=== PATIENT | male | born 1970 | race Asian ===

== ENCOUNTER → 2020-06-22 08:58 | Outpatient (CLI) | payer OTHER, SELFPAY ==
[2020-06-22 12:45] LABS: ALB/GLOB Ratio 0.8 RATIO (0.9-2.4); AST(SGOT) 22 U/L (15-37); Alanine Aminotransfer ALT/SGPT 26 U/L (16-61); Albumin, Serum 3.9 g/dL (3.2-5.0); Alkaline Phosphatase 65 U/L (45-117); Anion Gap 3 (5-15); BUN 21 mg/dL (7-18); BUN/Creat Ratio 24.9 RATIO (10-20); Calcium,Total 9.1 mg/dL (8.5-10.1); Chloride 106 mmol/L (98-107); Cholesterol 162 mg/dL (200); Creatinine, Serum 0.84 mg/dL (0.70-1.30); EST Glomerular Filtration Rate 102 mL/min (>60); Est Glom Filt Rate - Afr Amer 123 mL/min (>60); Globulin 4.6 g/dL (2.2-4.2); Glucose 87 mg/dL (74-106); High Density Lipoprotein 64 mg/dL; Potassium 4.1 mmol/L (3.5-5.1); Protein, Total 8.5 g/dL (6.4-8.2); Sodium Level 139 mmol/L (136-145); Triglycerides 58 mg/dL; Very Low Density Lipoprotein 12 mg/dL (5-40)
== END ==
PROVIDERS: PCP Family Medicine; Referring Provider Family Medicine; Visit Provider Family Medicine
DX: I10 Essential (primary) hypertension (principal); E78.5 Hyperlipidemia, unspecified
CPT/HCPCS: 36415; 80053; 80061

== ENCOUNTER → 2021-07-01 15:57 | Outpatient (CLI) | payer BC, SELFPAY ==
[2021-07-01 16:56] LABS: Absolute Lymphocyte Count 1.79 X10^3/uL (0.83-4.51); Absolute Neutrophil Count 5.3 X10^3/uL (2.0-7.7); Basophil# 0.06 X10^3/uL; Basophil% 0.7 % (0-1); Eosinophil# 0.57 X10^3/uL; Eosinophils% 6.6 % (0-5); Hemoglobin 13.1 g/dL (13.0-16.5); Lymphocyte # 1.79 X10^3/ul (0.83-4.51); Lymphocyte % 20.8 % (19-41); Mean Corpuscular Hgb 26.4 pg (27.0-32.0); Mean Corpuscular Volume 82.7 fL (80-94); Mean Platelet Vol. 10.7 fl (6.2-12.0); Monocyte# 0.88 X10^3/uL; Monocyte% 10.2 % (0-10); NRBC Flagged by Analyzer 0 % (0-5); Neutrophil # 5.28 X10^3/uL (2.7-7.7); Neutrophil % 61.4 % (47-70); Platelet Count 219 K/mm3 (150-450); RBC Distribution Width CV 13.9 % (11.6-14.6); RBC Distribution Width SD 41.5 fl (35.1-43.9); Red Blood Count 4.96 M/mm3 (4.6-6.2); White Blood Count 8.6 K/mm3 (4.4-11.0)
[2021-07-01 17:50] LABS: ALB/GLOB Ratio 0.8 RATIO (0.9-2.4); AST(SGOT) 31 U/L (15-37); Alanine Aminotransfer ALT/SGPT 31 U/L (16-61); Albumin, Serum 3.7 g/dL (3.2-5.0); Alkaline Phosphatase 62 U/L (45-117); Anion Gap 5 (5-15); BUN 21 mg/dL (7-18); BUN/Creat Ratio 25.7 RATIO (10-20); Calcium,Total 8.8 mg/dL (8.5-10.1); Chloride 106 mmol/L (98-107); Creatinine, Serum 0.82 mg/dL (0.70-1.30); EST Glomerular Filtration Rate 105 mL/min (>60); Est Glom Filt Rate - Afr Amer 127 mL/min (>60); Globulin 4.4 g/dL (2.2-4.2); Glucose 88 mg/dL (74-106); Potassium 3.6 mmol/L (3.5-5.1); Protein, Total 8.1 g/dL (6.4-8.2); Sodium Level 140 mmol/L (136-145)
== END ==
PROVIDERS: PCP Family Medicine; Visit Provider Physician Assistant
DX: I10 Essential (primary) hypertension (principal)
CPT/HCPCS: 36415; 80053; 85025

== ENCOUNTER 2022-01-29 10:08 | Outpatient (CLI) | payer BC, SELFPAY ==
[2022-01-29 10:11] LABS: Mucous, Urine 0 SEEN /hpf (<or=2+)
[2022-01-29 12:15] LABS: Color, Urine Yellow (Yellow); Glucose, Dipstick Normal (Normal); Ketone-Dipstick 15 mg/dl (Negative); Leukocyte Esterase-Dipstick 500 /ul (Negative); Nitrite-Dipstick Negative (Negative); Occult Blood-Urine 25 /ul (Negative); Protein-Dipstick 15 mg/dl (Negative); Urine Bilirubin Dipstick Negative (Negative); Urine Clarity Clear (Clear); Urine Urobilinogen 4 mg/dl (Normal)
[2022-01-29 12:41] LABS: Bacteria 1+ /hpf (None Seen); Red Blood Cells-Urine 0-5 SEEN /hpf (0-5); Squamous Epithelial Cells - UA 0-5 SEEN /hpf (0-5); White Blood Cells 25-50 SEEN /hpf (0-5)
[2022-01-29 13:56] LABS: Chlamydia Trachomatis by PCR Negative (Negative); Neisserai gonorrhoeae by PCR Negative (Negative); Probe Check PASS; Sample Adequacy Control PASS; Specimen Processing Control PASS
== END 2022-01-29 23:59 | disposition home or self-care (01) ==
LOC: LABSPEC 10:09
PROVIDERS: PCP Family Medicine; Referring Provider Physician Assistant; Visit Provider Physician Assistant
DX: R30.0 Dysuria (principal)
CPT/HCPCS: 81001; 87086; 87088; 87186; 87491; 87591

== ENCOUNTER 2022-02-19 15:14 | Outpatient (CLI) | payer BC, SELFPAY ==
[2022-02-19 15:15] LABS: Bacteria 0 SEEN /hpf (None Seen); Mucous, Urine 0 SEEN /hpf (<or=2+); Squamous Epithelial Cells - UA 0 SEEN /hpf (0-5)
[2022-02-19 16:58] LABS: Color, Urine Yellow (Yellow); Glucose, Dipstick Normal (Normal); Ketone-Dipstick 5 mg/dl (Negative); Leukocyte Esterase-Dipstick 500 /ul (Negative); Nitrite-Dipstick Negative (Negative); Occult Blood-Urine 250 /ul (Negative); Protein-Dipstick 30 mg/dl (Negative); Specific Gravity, Urine 1.015 (1.002-1.030); Urine Clarity Sl. Cloudy (Clear); Urine Urobilinogen 8 mg/dl (Normal)
[2022-02-19 17:01] LABS: Urine Bilirubin Dipstick 1 mg/dL (Negative)
[2022-02-19 17:07] LABS: Red Blood Cells-Urine 0-5 SEEN /hpf (0-5); White Blood Cells 25-50 SEEN /hpf (0-5)
== END 2022-02-19 23:59 | disposition home or self-care (01) ==
LOC: LABSPEC 15:14
PROVIDERS: PCP Family Medicine; Visit Provider Physician Assistant
DX: R30.0 Dysuria (principal)
CPT/HCPCS: 81001; 87086; 87088

== ENCOUNTER → 2022-02-21 | Outpatient (CLI) | payer BC, SELFPAY ==
--- NOTE | 2022-02-21 10:34 | US_ITS ---
STUDY: SCROTUM ULTRASOUND REASON FOR EXAM: Male, 52 years old. testicular pain and swelling TECHNIQUE: Ultrasound evaluation of the scrotum was performed with color Doppler and static stuart-scale imaging. COMPARISON: None. FINDINGS: RIGHT TESTICLE INTRATESTICULAR: There is a normal size of the right testicle. The right testicle measures 3.3 x 3.0 x 2.3 cm. There is a homogenous echotexture. There is normal arterial and normal venous vascularity. There is no demonstrated right testicular mass or cyst. EXTRATESTICULAR: The epididymis is enlarged. The epididymis head measures 1.4 x 1.3 x 1.8 cm. There is increased (hyperemic) vascularity of the epididymis. There is no demonstrated epididymal cystic structure. There is no demonstrated hydrocele. There is no demonstrated varicocele. There is no demonstrated extratesticular mass or cyst. LEFT TESTICLE INTRATESTICULAR: There is a normal size of the left testicle. The left testicle measures 4.0 x 2.6 x 1.8 cm. There is a homogenous echotexture. There is normal arterial and normal venous vascularity. There is no demonstrated left testicular mass or cyst. EXTRATESTICULAR: The epididymis is normal in size. The epididymis head measures 0.9 x 1.2 x 0.9 cm. There is normal vascularity of the epididymis. There is no demonstrated epididymal cystic structure. There is no demonstrated hydrocele. There is no demonstrated varicocele. There is no demonstrated extratesticular mass or cyst. US/Testicular with Arterial Flow IMPRESSION: Normal bilateral testicles. Right epididymitis. Electronically Signed: Edgardo Helms MD at 11:59 EDT ,
== END | disposition home or self-care (01) ==
LOC: US 10:32
PROVIDERS: PCP Family Medicine; Visit Provider Physician Assistant
DX: N50.811 Right testicular pain (principal); N50.89 Other specified disorders of the male genital organs
CPT/HCPCS: 76870; 93976

== ENCOUNTER → 2023-09-08 | Outpatient (CLI) | payer BC, SELFPAY ==
[2023-09-08 17:47] LABS: AST(SGOT) 24 U/L (15-37); Alanine Aminotransfer ALT/SGPT 30 U/L (16-61); Alkaline Phosphatase 71 U/L (45-117); Anion Gap 5 (5-15); BUN 23 mg/dL (7-18); BUN/Creat Ratio 21.5 RATIO (10-20); Calcium,Total 9.2 mg/dL (8.5-10.1); Chloride 104 mmol/L (98-107); Cholesterol 195 mg/dL (200); Creatinine, Serum 1.07 mg/dL (0.70-1.30); EST Glomerular Filtration Rate 76 mL/min (>60); Est Glom Filt Rate - Afr Amer 92 mL/min (>60); Globulin 4.1 g/dL (2.2-4.2); Glucose 91 mg/dL (74-106); High Density Lipoprotein 83 mg/dL; Protein, Total 8.1 g/dL (6.4-8.2); Sodium Level 138 mmol/L (136-145); Triglycerides 65 mg/dL; Very Low Density Lipoprotein 13 mg/dL (5-40)
== END | disposition home or self-care (01) ==
LOC: BIMLAB 16:09
PROVIDERS: PCP Family Medicine; Referring Provider Family Medicine; Visit Provider Family Medicine
DX: I10 Essential (primary) hypertension (principal)
CPT/HCPCS: 36415; 80053; 80061

== ENCOUNTER → 2024-07-08 | Outpatient (CLI) | payer BC, SELFPAY ==
--- NOTE | 2024-07-08 13:36 | RAD_ITS ---
STUDY: X-RAY - LUMBAR SPINE REASON FOR EXAM: Male, 54 years old. chronic low back pain TECHNIQUE: 3 view(s) of the lumbar spine were obtained. COMPARISON: None FINDINGS: Normal lumbar lordosis. There is no substantial scoliosis. There is a normal alignment of the vertebrae. Degenerative changes of the vertebral bodies with spurring at the endplates. Slightly narrowed disc space heights. The soft tissue structures are unremarkable. RAD/Lumbar Spine 2 or 3 Views IMPRESSION: Mild degenerative changes of the lumbar spine. Electronically Signed: Gus Khoury DO at 14:26 EDT Reading Location ID and State: [facility] / [place] Tel [phone], Service support ,
[2024-07-08 15:20] LABS: Hemoglobin 12.9 g/dL (13.0-16.5); Mean Corp Hgb Conc 31.5 g/dL (32-36); Mean Corpuscular Hgb 25.9 pg (27.0-32.0); Mean Corpuscular Volume 82.2 fL (80-94); Mean Platelet Vol. 10.9 fl (6.2-12.0); Platelet Count 245 K/mm3 (150-450); RBC Distribution Width CV 14.6 % (11.6-14.6); RBC Distribution Width SD 43.3 fl (35.1-43.9); Red Blood Count 4.99 M/mm3 (4.6-6.2)
[2024-07-08 16:19] LABS: ALB/GLOB Ratio 0.8 RATIO (0.9-2.4); AST(SGOT) 22 U/L (15-37); Alanine Aminotransfer ALT/SGPT 24 U/L (16-61); Albumin, Serum 3.5 g/dL (3.2-5.0); Alkaline Phosphatase 66 U/L (45-117); Anion Gap 6 (5-15); BUN 20 mg/dL (7-18); BUN/Creat Ratio 25.5 RATIO (10-20); Calcium,Total 8.9 mg/dL (8.5-10.1); Chloride 108 mmol/L (98-107); Cholesterol 186 mg/dL (200); Creatinine, Serum 0.78 mg/dL (0.70-1.30); EST Glomerular Filtration Rate 109 mL/min (>60); Est Glom Filt Rate - Afr Amer 132 mL/min (>60); Globulin 4.2 g/dL (2.2-4.2); Glucose 99 mg/dL (74-106); High Density Lipoprotein 77 mg/dL; PSA,Total- Diagnostic 3.58 ng/mL (0.0-4.0); Potassium 3.7 mmol/L (3.5-5.1); Protein, Total 7.7 g/dL (6.4-8.2); Sodium Level 139 mmol/L (136-145); Triglycerides 109 mg/dL; Very Low Density Lipoprotein 22 mg/dL (5-40)
== END | disposition home or self-care (01) ==
PROVIDERS: PCP Family Medicine; Referring Provider Family Medicine; Visit Provider Family Medicine
DX: M54.50 Low back pain, unspecified (principal); G89.29 Other chronic pain; I10 Essential (primary) hypertension; N52.9 Male erectile dysfunction, unspecified
CPT/HCPCS: 36415; 72100; 80053; 80061; 84153; 85027

== ENCOUNTER → 2024-11-30 | Outpatient (CLI) | payer BC, SELFPAY ==
[2024-11-30 17:48] LABS: ALB/GLOB Ratio 0.8 RATIO (0.9-2.4); AST(SGOT) 25 U/L (15-37); Alanine Aminotransfer ALT/SGPT 27 U/L (16-61); Albumin, Serum 3.7 g/dL (3.2-5.0); Alkaline Phosphatase 74 U/L (45-117); Anion Gap 7 (5-15); BUN 28 mg/dL (7-18); BUN/Creat Ratio 34.4 RATIO (10-20); Calcium,Total 9.3 mg/dL (8.5-10.1); Chloride 105 mmol/L (98-107); Cholesterol 175 mg/dL (200); Creatinine, Serum 0.81 mg/dL (0.70-1.30); EST Glomerular Filtration Rate 104 mL/min (>60); Est Glom Filt Rate - Afr Amer 126 mL/min (>60); Globulin 4.7 g/dL (2.2-4.2); Glucose 96 mg/dL (74-106); High Density Lipoprotein 81 mg/dL; PSA,Total - Annual Screen 3.41 ng/mL (0.00-4.00); Potassium 3.9 mmol/L (3.5-5.1); Protein, Total 8.4 g/dL (6.4-8.2); Sodium Level 139 mmol/L (136-145); Triglycerides 49 mg/dL; Very Low Density Lipoprotein 10 mg/dL (5-40)
== END | disposition home or self-care (01) ==
LOC: BIMLAB 15:58
PROVIDERS: PCP Family Medicine; Visit Provider Family Medicine
DX: Z00.00 Encounter for general adult medical examination without abnormal findings (principal); I10 Essential (primary) hypertension
CPT/HCPCS: 36415; 80053; 80061; 84153; G0103

== ENCOUNTER → 2025-07-21 | Outpatient (CLI) | payer BC, SELFPAY ==
--- OUTSIDE RECORDS SUMMARY | 2025-07-21 08:52 | XMS RPT_ITS | CCD ---
Author Organization [facility] Care Team Providers Care Secretary Board Of Commissioners Name Role Phone Dr. Gino Patterson Primary Care Provider [phone] Dr. Gino Patterson Attending Provider [phone] Dr. Gino Patterson Referring Provider [phone] ESHA Yee Attending Provider Unavailab ISAURA Medrano DO Primary Care Physician [phone] GINO PATTERSON Attending Unavailable ISAURA PUCKETT Primary Care Unavailable Dr. Gino Pattesron Primary Care Provider [phone] Dr. Gino Patterson Attending Provider [phone] Gino Patterson Referring Provider [phone] Dr. Gino Patterson DO Primary Care Provider Dr. Gino Patterson DO Attending Provider [phone] Dr. Gino Patterson DO Referring Provider [phone] Gino Patterson Attending Unavailable Gino Patterson Primary Care Unavailable Gino Patterson Referring Unavailable Gino Patterson Primary Care Unavailable Gino Patterson Referring Unavailable Gino Patterson Attending Unavailable Gino Patterson Primary Care Unavailable Gino Patterson Attending Unavailable Medications Current Medications Medication Drug Class(es) Dates Sig (Normalized) Sig (Original) Blood Pressure Monitor (Blood Pressure Kit) kit (5 sources) Start: 07-01-2021 Blood Pressure Monitor (Blood Pressure Kit) kit Active 0 .ROUTE .MEDSUPPLY 1 July 01, 2021 3:49pm As directed Start: 07-01-2021 Blood Pressure Monitor (Blood Pressure Kit) kit Active 0 .ROUTE .MEDSUPPLY 1 0 July 01, 2021 12:00am As directed Start: 07-01-2021 Blood Pressure Monitor (Blood Pressure Kit) kit Active 0 .ROUTE .MEDSUPPLY 1 June 30, 2021 11:00pm As directed lisinopril 20 mg oral tablet (20 sources) Angiotensin Converting Enzyme Inhibitor Start: 08-09-2019 End: 06-23-2025 take 1 tablet by mouth once daily Lisinopril 20 mg tablet Active 20 mg PO DAILY 90 June 23, 2025 2:11pm sildenafil 100 mg oral tablet (6 sources) Phosphodiesterase 5 Inhibitor Start: 09-08-2023 End: 07-11-2025 Sildenafil (Viagra) 100 mg tablet Active 100 mg PO DAILY as needed for sexual activity 10 July 11, 2025 4:05pm administer 30 minutes to 4 hours before activity work limitations (1 source) Start: 07-11-2025 work limitations Active 0 .ROUTE .MEDSUPPLY 1 0 July 11, 2025 12:00am Because of chronic back problems he is limited to lifting to 15 pounds. Duration 6 months. Completed/Discontinued Medications Medication Drug Class(es) Dates Sig (Normalized) Sig (Original) ciprofloxacin 250 mg oral tablet (9 sources) Quinolone Antimicrobial Start: 01-29-2022 End: 02-20-2022 take 1 tablet by mouth twice daily Ciprofloxacin Hcl 250 mg tablet Discontinued 250 mg PO TWICE A DAY 14 February 20, 2022 9:06am February 20, 2022 1:24pm cyclobenzaprine hydrochloride 5 mg oral tablet (7 sources) Muscle Relaxant Start: 07-01-2021 End: 09-30-2022 take 1 tablet by mouth at bedtime as needed for muscle spasms Cyclobenzaprine 5 mg tablet Discontinued 5 mg PO TWICE A DAY as needed for muscle spasm 20 August 06, 2022 4:10pm September 30, 2022 5:05pm Take first dose at bedtime. May take 1-2 times a day as needed for muscle spasms. hydroquinone (2 sources) Melanin Synthesis Inhibitor Start: 09-08-2023 End: 07-11-2025 Hydroquinone 4 % cream Discontinued 1 NMA TOPICAL DAILY 28.4 1 September 08, 2023 1:00am July 11, 2025 3:47pm Start: 11-07-2023 Hydroquinone A ctive 1 APPLIC TOPICAL DAILY 28.4 September 08, 2023 12:00am levoFLOXacin 500 mg oral tablet (8 sources) Quinolone Antimicrobial Start: 02-20-2022 End: 08-06-2022 take 1 tablet by mouth once daily Levofloxacin 500 mg tablet Discontinued 500 mg PO DAILY 10 April 10, 2022 1:02pm August 06, 2022 3:57pm meloxicam 15 mg oral tablet (20 sources) Nonsteroidal Anti-inflammatory Drug Start: 07-06-2024 End: 07-11-2025 take 1 tablet by mouth once daily for pain Meloxicam 15 mg tablet Discontinued 15 mg PO DAILY 30 1 February 07, 2025 8:13am July 11, 2025 3:47pm for low back pain Start: 06-19-2020 End: 11-13-2022 take 1 tablet by mouth once daily Meloxicam 15 mg tablet Discontinued 15 mg PO DAILY 30 2 September 18, 2021 10:43am August 06, 2022 3:56pm methylPREDNISolone acetate 40 mg/ml injectable suspension (3 sources) Corticosteroid Start: 08-06-2020 End: 08-06-2020 Depo-Medrol (methylprednisolone acetate) 40 mg/mL suspension for injection Discontinued 40 MG INTRAARTIC ONCE 1 August 06, 2020 2:30pm August 06, 2020 3:28pm phenazopyridine hydrochloride 100 mg oral tablet (5 sources) Start: 01-29-2022 End: 01-31-2022 take 1 tablet by mouth three times daily as needed for pain Phenazopyridine 100 mg tablet Discontinued 100 mg PO THREE TIMES A DAY as needed for pain 6 2 0 January 29, 2022 12:00am January 30, 2022 12:00am January 31, 2022 12:04am tadalafil 20 mg oral tablet (20 sources) Phosphodiesterase 5 Inhibitor Start: 09-08-2023 End: 07-11-2025 take 1 tablet by mouth once daily Tadalafil (Cialis) 20 mg tablet Discontinued 20 mg PO DAILY 08 03September 08, 2023 5:07pm July 11, 2025 3:48pm Start: 03-31-2020 End: 08-06-2022 take 1 tablet by mouth once daily Tadalafil (Cialis) 20 mg tablet Discontinued 20 mg PO DAILY 08 03December 25, 2021 5:14pm August 06, 2022 3:57pm Problems Active Problems Problem Classification Problem Date Documented Da te Episodic/Chronic Essential hypertension (15 sources) Hypertensive disorder; Translations: [Essential (primary) hypertension] Onset: 07-11-2025 Chronic Inflammatory conditions of male genital organs (2 sources) Epididymo-orchitis without abscess; Translations: [Epididymo-orchitis ] 02-27-2022 Episodic Other and unspecified benign neoplasm (1 source) Melanocytic nevus of face; Translations: [Melanocytic nevi of unspecified part of face] 11-13-2022 Episodic Other and unspecified benign neoplasm (1 source) Melanocytic nevi of unspecified part of face; Translations: [Melanocytic nevus of face] 11-13-2022 Episodic Other connective tissue disease (5 sources) Atrophy of muscle of right lower leg; Translations: [Muscle wasting and atrophy, not elsewhere classified, right lower leg] 06-19-2020 Episodic Other connective tissue disease (4 sources) Muscle wasting and atrophy, not elsewhere classified, right lower leg; Translations: [Muscular wasting and disuse atrophy, not elsewhere classified] Episodic Other male genital disorders (10 sources) Male erectile dysfunction, unspecified; Translations: [Erectile dysfunction] Onset: 11-30-2024 Chronic Other male genital disorders (1 source) Impotence 08-09-2019 Chronic Other nervous system disorders (1 source) Other chronic pain; Translations: [Other chronic pain] Onset: 07-11-2025 Chronic Other non-traumatic joint disorders (4 sources) Pain in left knee; Translations: [Left knee pain] Onset: 07-11-2025 09-30-2022 Episodic Other skin disorders (5 sources) Seborrheic keratosis; Translations: [Other seborrheic keratosis] 12-25-2021 Episodic Other skin disorders (5 sources) Multiple skin tags; Translations: [Other hypertrophic disorders of the skin] 08-30-2020 Episodic Other skin disorders (3 sources) Other seborrheic keratosis; Translations: [Other seborrheic keratosis] Episodic Other skin disorders (2 sources) Solar lentigo; Translations: [Other melanin hyperpigmentation] 09-08-2023 Episodic Spondylosis; intervertebral disc disorders; other back problems (3 sources) Chronic low back pain; Translations: [Chronic low back pain] Episodic Sprains and strains (2 sources) Low back strain; Translations: [Strain of muscle, fascia and tendon of lower back, initial encounter] 09-30-2022 Episodic Unclassified (2 sources) M54.50 - Low back pain, unspecified,G89.29 - Other chronic pain Unclassified (1 source) Low back pain, unspecified; Translations: [Low back pain, unspecified] Onset: 07-11-2025 Past or Other Problems Problem Classification Problem Date Documented Da te Episodic/Chronic Other skin disorders (2 sources) Other melanin hyperpigmentatio n; Translations: [Other dyschromia] Onset: 11-30-2024 09-08-2023 Episodic Results Test Name Value Interpretation Reference Range Facility Internal Medicine Office Vis ayush 07-11-2025 Internal Medicine Office Visit [facility] [address] [place] [address] [place] [address] OFFICE VISIT Date of Service: 07/11/25 MR#: [id number] Acct: [id number] Name: LEANDER RUIZ Rep #: [id number] : 1970 Provider: Dr. Gino Hua own, DO Age/Sex: 55/M Location: [facility] Status: Signed Intake Vital Signs 11/30/24 15:45 07/11/25 15:48 Height 5 ft 6 in 5 ft 6 in Weight: 154 lb 150 lb BMI 24.8 24.2 BP 130/80 H 128/80 H Blood Pressure Location Lt brachial Lt brachial Position Sitting Sitting Respiration 16 18 Pulse 63 58 L Pulse Source Monitor Monitor Temp 98.0 F 98 F Temp Source Temporal Temporal Pulse Oximetry (%) 97 97 Oxygen Delivery Method room air room air Intake Visit Reasons: Low Back Pain Chief Complaint: Patient has increasing low back pain. [place] Required: No Is patient in pain?: Yes (lumbar back) Pain scale (1-10): 7 Allergies No Known Allergies Allergy (Verified 07/11/25 15:39) Medications ???Medication ???Instructions ???Recorded ???Confirmed ???Type blood pressure monitor (Blood #1 ea 07/01/21 07/11/25 Rx Pressure Kit) lisinopril 20 mg tablet 20 mg PO DAILY #90 tabs 06/23/25 0 07/11/25 Rx sildenafil 100 mg tablet (Viagra) 100 mg PO DAILY PRN sexual 07/11/25 Rx activity #10 tabs work limitations #1 ea 07/11/25 07/11/25 Rx Nurse's Note: Pt states about 2 years ago he started w/ low back pain. Pt states that it is getting more painful. Had xray done 07/2024. Mild arthritis shown. Pt states stretching did not help. Has not been treating w/ otc nsaids. Pt denies numbness tingling, loss of bowel or bladder control, radiating pain into other extermities. Pt is a 7/10 which is the worst it gets. Pt states it shoots up if he coughs. PFSH Medical History Essential hypertension Surgical History H/O arthroscopic knee surgery Family History Mother Hypertension Sister Diabetes Social History household members: spouse and children Smoking Status: Never smoker alcohol intake: never substance use type: does not use what type of physical activity do you participate in: none do you feel safe at home: Yes HPI HPI Chief Complaint: Patient has increasing low back pain. Details: LEANDER RUIZ, is a 55 M who presents to the office today for low back pain. He is struggling to get through the day the work because the pain is so severe but the pain is not radicular. He complained of the same pain last year and it was suggested to go through physical therapy but he thought he would just do stretching at home and that is not helped. X-rays showed simple arthritis. He is also having trouble with his left knee and at some point in time would like that injected. ROS Const Constitutional: No body ache, chills, excessive sweating, fatigue, fever(s), frequent falls, headache(s), snoring, weakness, sleep problems or change in appetite Eyes Eyes: No blurry vision, change in vision, eye pain or Light sensitivity ENT ENT: No abnormal hearing, ear or mastoid pain, tinnitus, nasal congestion, headache(s), neck pain or sore throat Resp Respiratory: No cough, shortness of breath, snoring or wheezing Cardio Cardiology: No chest pain at rest, chest pain with exertion, excessive sweating, shortness of breath, dyspnea on exertion, lightheadedness, orthopnea or palpitations Gastro GI: No abdominal pain, change in bowel habits, constipation, cramping, diarrhea, nausea/dyspepsia or vomiting Genitourinary Male: No burning urination, painful urination, urinary incontinence or urinary frequency Musc Musculoskeletal: No abnormal gait, joint pain, back pain, limited range of motion, neck pain or numbness Skin Skin: No dry skin, redness, lesions, itchy eyes, rash or wounds Neuro Neurology: No abnormal gait, abnormal hearing, weakness, frequent falls, headache(s), memory loss or numbness Psych Psychiatric: No anxiety, No change in appetite, No depression, No memory loss and No Thoughts of harming yourself/Others Endo Endocrine: No cold intolerance, excessive sweating, fatigue, flushing, heat intolerance, increased thirst/drinking or increased hunger Aller/Imm Allergy/Immunologic: No itchy eyes, seasonal allergy symptoms, hives or wheezing Quinten/Lymp Hematologic/Lymphati c: No easy bleeding, easy bruising, enlarged lymph nodes or other Exam Const General: cooperative and healthy appearing Nutritional Appearance: average body habitus Orientation: alert HENMT Ears: hearing grossly normal bilaterally Musc Thoracic/Lumbar Spine: thor and lumb spine (more content not included)... Normal [facility] Comprehensive Metabolic Prof ilon 11-30-2024 Albumin [Mass/Vol] 3.7 g/dL Normal 3.2-5.0 [facility] Comment on above: Performed By: #### L 500.4100, L501.9910, L500.4050 #### [facility] [address] [place], [address] Albumin/Globulin [Mass ratio] 0.8 {ratio} Low 0.9-2.4 [facility] Comment on above: Performed By: #### L 500.4100, L501.9910, [id number] #### [facility] [address] [place], [address] ALK P 74 U/L Normal 45-117 [facility] Comment on above: Performed By: #### L 500.4100, [id number], [id number] #### [facility] [address] [place], [address] ALT [Catalytic activity/Vol] 27 U/L Normal 16-61 [facility] Comment on above: Performed By: #### L 500.4100, L501.9910, [id number] #### [facility] [address] [place], [address] AST [Catalytic activity/Vol] 25 U/L Normal 15-37 [facility] Comment on above: Performed By: #### L 500.4100, L501.9910, [id number] #### [facility] [address] [place], [address] Bilirubin [Mass/Vol] 0.50 mg/dL Normal 0.20-1.00 [facility] Comment on above: Result Comment: For patients on eltrombopag therapy, use of Dimension [place] TBIL is not recommended. Performed By: #### L 500.4100, L501.9910, L500.4050 #### [facility] [address] [place], [address] BUN/CRE 34.4 RATIO High 10-20 [facility] Comment on above: Performed By: #### L 500.4100, L501.9910, [id number] #### [facility] [address] [place], [address] CA,Total 9.3 mg/dL Normal 8.5-10.1 [facility] Comment on above: Performed By: #### L 500.4100, L501.9910, [id number] #### [facility] [address] [place], [address] Chloride [Moles/Vol] 105 mmol/L Normal 98-107 [facility] Comment on above: Performed By: #### L 500.4100, L501.9910, [id number] #### [facility] [address] [place], [address] CO2 [Moles/Vol] 27.0 mmol/L Normal 21.0-32.0 [facility] Comment on above: Performed By: #### L 500.4100, L501.9910, L500.4050 #### [facility] [address] [place], [address] Creatinine [Mass/Vol] 0.81 mg/dL Normal 0.70-1.30 [facility] Comment on above: Result Comment: The validity of the calculated GFR GFRAA in patients over 70 years has not been determined. Clinical correlation is essential. Performed By: #### L 500.4100, L501.9910, L500.4050 #### [facility] [address] [place], [address] EST GFR - AA 126 mL/min Normal >60 [facility] Comment on above: Result Comment: Afri can [place] GFR Calc Performed By: #### L 500.4100, L501.9910, [id number] #### [facility] [address] [place], [address] GAP 7 Normal 5-15 [facility] Comment on above: Performed By: #### L 500.4100, L501.9910, [id number] #### [facility] [address] [place], [address] GFR/1.73 sq M.predicted among non-blacks MDRD (S/P/Bld) [Vol rate/Area] 104 mL/min/{1.73_m2} Normal >60 [facility] Comment on above: Result Comment: Non- GFR Calc Performed By: #### L 500.4100, L501.9910, [id number] #### [facility] [address] [place], [address] Globulin (S) [Mass/Vol] 4.7 g/dL High 2.2-4.2 [facility] Comment on above: Performed By: #### L 500.4100, L501.9910, [id number] #### [facility] [address] [place], [address] Glucose [Mass/Vol] 96 mg/dL Normal 74-106 [facility] Comment on above: Performed By: #### L 500.4100, L501.9910, [id number] #### [facility] [address] [place], [address] Potassium [Moles/Vol] 3.9 mmol/L Normal 3.5-5.1 [facility] Comment on above: Performed By: #### L 500.4100, L501.9910, [id number] #### [facility] [address] [place], [address] Sodium [Moles/Vol] 139 mmol/L Normal 136-145 [facility] Comment on above: Performed By: #### L 500.4100, L501.9910, [id number] #### [facility] [address] [place], [address] T PROT 8.4 g/dL High 6.4-8.2 [facility] Comment on above: Performed By: #### L 500.4100, L501.9910, [id number] #### [facility] [address] [place], [address] Urea nitrogen [Mass/Vol] 28 mg/dL High 7-18 [facility] Comment on above: Performed By: #### L 500.4100, L501.9910, L500.4050 #### [facility] [address] [place], [address] Internal Medicine Office Vis iton 11-30-2024 Internal Medicine Office Visit [facility] [address] [place] [address] [place] [address] OFFICE VISIT Date of Service: 11/30/24 MR#: [id number] Acct: [id number] Name: LEANDER RUIZ Rep #: [id number] : 1970 Provider: Dr. Gino wallis, DO Age/Sex: 54/M Location: [facility] Status: Signed Intake Vital Signs 07/06/24 16:22 11/30/24 15:45 Height 5 ft 6 in 5 ft 6 in Weight: 156 lb 154 lb BMI 25.2 24.8 BP 124/80 H 130/80 H Blood Pressure Location Lt brachial Lt brachial Position Sitting Sitting Respiration 14 16 Pulse 64 63 Pulse Source Monitor Monitor Temp 9.6 F L 98.0 F Temp Source Temporal Temporal Pulse Oximetry (%) 98 97 Oxygen Delivery Method room air room air Intake Visit Reasons: MED FOLLOW UP/CHK MOLE ON NECK Chief Complaint: mole on neck and wants BW done [place] Required: No Accompanied by: Self Is patient in pain?: No Allergies No Known Allergies Allergy (Verified 11/30/24 15:41) Medications ???Medication ???Instructions ???Recorded ???Confirmed ???Type blood pressure monitor (Blood #1 ea 07/01/21 11/30/24 Rx Pressure Kit) hydroquinone 4 % topical cream 1 applic topical DAILY #28.4 grams 09/08/23 11/30/24 Rx tadalafil 20 mg tablet (Cialis) 20 mg PO DAILY #10 tabs 09/08/23 11/30/24 Rx meloxicam 15 mg tablet 15 mg PO QDAY back pain #30 tabs 07/06/24 11/30/24 Rx lisinopril 20 mg tablet 20 mg PO DAILY #90 tabs 11/30/24 11/30/24 Rx sildenafil 100 mg tablet (Viagra) 100 mg PO DAILY PRN sexual 11/30/24 11/30/24 Rx activity #10 tabs PFSH Medical History (Updated 11/30/24 @ 15:[address] Gino Patterson, DO) Essential hypertension Surgical History H/O arthroscopic knee surgery Family History Mother Hypertension Sister Diabetes Social History household members: spouse and children Smoking Status: Never smoker alcohol intake: never substance use type: does not use what type of physical activity do you participate in: none do you feel safe at home: Yes HPI HPI Chief Complaint: mole on neck and wants BW done Details: LEANDER RUIZ, is a 54 M who presents to the office today for a general yearly physical. He has no specific complaints other than some benign skin tags that are pigmented on his neck. He says he feels well has good energy but does have a lot of problems with back pain and cannot lift excessive weight. He would like a slip that he had last year that he is not allowed to lift over 30 pounds at work. ROS Const Constitutional: No body ache, chills, excessive sweating, fatigue, fever(s), frequent falls, headache(s), snoring, weakness, weight change or change in appetite Eyes Eyes: No blurry vision, change in vision, eye pain or Light sensitivity ENT ENT: No abnormal hearing, ear or mastoid pain, tinnitus, nasal congestion, headache(s), neck pain or sore throat Resp Respiratory: No cough, shortness of breath, snoring or wheezing Cardio Cardiology: No chest pain at rest, chest pain with exertion, excessive sweating, dyspnea on exertion, lightheadedness, orthopnea or palpitations Gastro GI: No abdominal pain, change in bowel habits, constipation, cramping, diarrhea, nausea/dyspepsia or vomiting Genitourinary Male: No burning urination, painful urination, urinary incontinence or urinary frequency Musc Musculoskeletal: No abnormal gait, joint pain, back pain, limited range of motion, muscle weakness, neck pain or numbness Skin Skin: No dry skin, redness, lesions, itchy eyes, rash or wounds Neuro Neurology: No abnormal gait, abnormal hearing, weakness, frequent falls, headache(s), memory loss or numbness Psych Psychiatric: No anxiety, No change in appetite, No depression, No memory loss and No Thoughts of harming yourself/Others Endo Endocrine: No cold intolerance, excessive sweating, fatigue, flushing, heat intolerance, increased thirst/drinking, increased hunger or weight change Aller/Imm Allergy/Immunologic: No itchy eyes, seasonal allergy symptoms, hives or wheezing Quinten/Lymp Hematologic/Lymphati c: No easy bleeding or easy bruising Exam Const General: cooperative and healthy appearing Nutritional Appearance: average body habitus Eyes General: appearance normal, both eyes and all related structures Neck Neck: normal visual inspection Resp Effort Inspection: normal respiratory effort Auscultation: Bilateral: Clear to Auscultation Cardio Rate: regular rate Rhythm: regular rhythm Musc Musculoskeletal: Yes joint tenderness; No joint redness, joint warmth or decreased range of motion Thoracic/Lumbar Spine: straight leg raise negative bilaterally, paraspinal tenderness and lumbar spinal tenderne (more content not included)... Normal [facility] Lipid Profileon 11-30-2024 Cholesterol [Mass/Vol] 175 mg/dL Normal 200 [facility] Comment on above: Result Comment: <200 mg/dL Desirable 200-240 mg/dL Borderline >240 mg/dL High Risk Performed By: #### L 500.4100, L501.9910, L500.4050 #### [facility] [address] [place], [address] Cholesterol in HDL [Mass/Vol] 81 mg/dL Normal [facility] Comment on above: Result Comment: The drugs N-Acetylcysteine and Metamizole may falsely depress this assay. Reference Range HDL <40 mg/dL Low HDL Cholesterol HDL >or= 60 mg/dL High HDL Cholesterol Performed By: #### L 500.4100, L501.9910, L500.4050 #### [facility] [address] [place], [address] Cholesterol in LDL [Mass/Vol] 84 mg/dL Normal 0-130 [facility] Comment on above: Performed By: #### L 500.4100, L501.9910, L500.4050 #### [facility] [address] [place], [address] Cholesterol in VLDL [Mass/Vol] 10 mg/dL Normal 5-40 [facility] Comment on above: Performed By: #### L 500.4100, L501.9910, L500.4050 #### [facility] [address] [place], [address] Triglyceride [Mass/Vol] 49 mg/dL Normal [facility] Comment on above: Result Comment: The drugs N-Acetylcysteine and Metamizole may falsely depress this assay. Serum Triglycerides Reference Interval Normal <150 mg/dL Borderline high 150 - 199 mg/dL High 200 - 499 mg/dL Very High > or = 500 mg/dL Performed By: #### L 500.4100, L501.9910, L500.4050 #### [facility] [address] [place], [address] PSA,Total - Annual Screenon 11-30-2024 PSA,TOT SCREEN 3.41 ng/mL Normal 0.00-4.00 [facility] Comment on above: Result Comment: This test was performed using the TPSA assay method for the [employer] chemistry system. Values obtained with different assay methods cannot be used interchangably. When changing PSA assays in the course of monitoring a patient, additional sequential testing should be carried out to confirm baseline values. Performed By: #### L 500.4100, L501.9910, L500.4050 #### [facility] [address] [place], [address] Basophil percentageOrdered B y: Gino Brown on 09-08-2023 Bilirubin [Mass/Vol] 0.40 mg/dL 0.20-1.00 [facility] Comment on above: For patients on eltr ombopag therapy, use of Dimension [place] TBIL is not recommended. Chloride [Moles/Vol] 104 mmol/L 98-107 [facility] Cholesterol [Mass/Vol] 195 mg/dL <200 [facility] Comment on above: <200 mg/dL Desirable 200-240 mg/dL Borderline >240 mg/dL High Risk Glucose [Mass/Vol] 91 mg/dL 74-106 [facility] Potassium [Moles/Vol] 4.0 mmol/L 3.5-5.1 [facility] Protein [Mass/Vol] 8.1 g/dL 6.4-8.2 [facility] Sodium [Moles/Vol] 138 mmol/L 136-145 [facility] Triglyceride [Mass/Vol] 65 mg/dL <199 [facility] Comment on above: The drugs N-Acetylcy steine and Metamizole may falsely depress this assay.Serum Triglycerides Reference Interval Normal <150 mg/dL Borderline high 150 - 199 mg/dL High 200 - 499 mg/dL Very High > or = 500 mg/dL Laboratory - Chemistry and C hemistry - challengeOrdered By: Gino Patterson on 09-08-2023 ALP [Catalytic activity/Vol] 71 U/L 45-117 [facility] ALT [Catalytic activity/Vol] 30 U/L 16-61 [facility] CO2 [Moles/Vol] 29.0 mmol/L 21.0-32.0 [facility] Globulin (S) [Mass/Vol] 4.1 g/dL 2.2-4.2 [facility] Urea nitrogen/Creatinine [Mass ratio] 21.5 mg/mg 10-20 [facility] No Panel InformationOrdered By: Gino Patterson on 09-08-2023 Estimated GFR (MDRD) Amer 92 mL/min >60 [facility] Comment on above: GFR Calc Estimated GFR (MDRD) Non-Af Amer 76 mL/min >60 [facility] Comment on above: Non- GFR Calc Serum or plasma albumin floyd urement (mass/volume)Ordered By: Gino Patterson on 09-08-2023 Albumin [Mass/Vol] 4.0 g/dL 3.2-5.0 [facility] Serum or plasma albumin/glob ulin mass ratioOrdered By: Gino Patterson on 09-08-2023 Albumin/Globulin [Mass ratio] 1.0 {ratio} 0.9-2.4 [facility] Serum or plasma calcium floyd urement (mass/volume)Ordered By: Gino Patterson on 09-08-2023 Calcium [Mass/Vol] 9.2 mg/dL 8.5-10.1 [facility] Serum or plasma cholesterol in HDL measurement (mass/volume)Ordered By: Gino Patterson on 09-08-2023 Cholesterol in HDL [Mass/Vol] 83 mg/dL >40 [facility] Comment on above: The drugs N-Acetylcy steine and Metamizole may falsely depress this assay. Reference Range HDL <40 mg/dL Low HDL Cholesterol HDL >or= 60 mg/dL High HDL Cholesterol Serum or plasma cholesterol in VLDL measurement (mass/volume)Ordered By: Gino Patterson on 09-08-2023 Cholesterol in VLDL [Mass/Vol] 13 mg/dL 5-40 [facility] Serum or plasma creatinine m easurement (mass/volume)Ordered By: Gino Patterson on 09-08-2023 Creatinine [Mass/Vol] 1.07 mg/dL 0.70-1.30 [facility] Comment on above: The validity of the calculated GFR & GFRAA in patients over 70 years has not been determined. Clinical correlation is essential. Serum or plasma low density lipoprotein (LDL) cholesterol measurement (mass/volume)Ordered By: Gino Patterson on 09-08-2023 Cholesterol in LDL [Mass/Vol] 99 mg/dL 0-130 [facility] Serum or plasma urea nitroge n measurement (mass/volume)Ordered By: Gino Patterson on 09-08-2023 Urea nitrogen [Mass/Vol] 23 mg/dL 7-18 [facility] Thin prep Papanicolaou smear with manual screeningOrdered By: Gino Patterson on 09-08-2023 Thin prep Papanicolaou smear with manual screening 24 U/L 15-37 [facility] Thin prep Papanicolaou smear with manual screening 5 5-15 [facility] XR KNEE THREE VIEWS LEFTon 1 12-16-2021 XR KNEE THREE VIEWS LEFT ORIGINAL EXAMINATION: THREE XRAY VIEWS OF THE LEFT KNEE 10/11/2022 10:19 am COMPARISON: None. HISTORY: ORDERING SYSTEM PROVIDED HISTORY: Reason for Exam: PAIN IN LEFT KNEE FINDINGS: No acute fracture or dislocation. Bipartite patella. Joint space narrowing with tricompartmental osteophyte formation. Enthesophyte at the insertion of the quadriceps tendon. There may be a small joint effusion. IMPRESSION: Moderate degenerative changes. Interpreted by: Kaykay Matias MD Preliminary Report By: Kaykay Matias MD Electronically signed By Kaykay Matias MD Dictated Date: 10/15/2022 4:26:31 PM Prelim Date: 10/15/2022 4:27:56 PM Sign Date: 10/15/2022 4:27:56 PM Ordering Provider: GINO PATTERSON [facility] ([place]) Basophil percentageon 2021 Basophil percentage 25-50 SEEN /hpf [facility] Work Phone: Bilirubin Test strip Ql (U)o n 02-19-2022 Bilirubin Ql (U) 1 mg/dL Negative [facility] Work Phone: Comment on above: COLOR OF URINE MAY A FFECT DIPSTICK RESULTS. Culture, urineon 02-19-2022 Bacteria identified Cx Nom (U) GNR lactose screen examiner [facility] Work Phone: Ketones Test strip Ql (U)on 02-19-2022 Ketones Ql (U) 5 mg/dl Negative [facility] Work Phone: Mucus LM Ql (Urine sed)on Mucus Ql (Urine sed) 0 SEEN /hpf [facility] Work Phone: Nitrite Test strip Ql (U)on 02-19-2022 Nitrite Ql (U) Negative Negative [facility] Work Phone: Protein Test strip Ql (U)on 02-19-2022 Protein Ql (U) 30 mg/dl Negative [facility] Work Phone: Squamous epithelial cells de tection in urine sediment by light microscopyon 02-19-2022 Epithelial cells.squamous LM Ql (Urine sed) 0 SEEN /hpf [facility] Work Phone: Urine blood detectionon 02-01 RBC Ql (U) 250 /ul Negative [facility] Work Phone: RBC Ql (U) 0-5 SEEN /hpf [facility] Work Phone: Urine clarityon 02-19-2022 Clarity (U) Sl. Cloudy Clear [facility] Work Phone: Urine color determinationon 02-19-2022 Color (U) Yellow Yellow [facility] Work Phone: Urine glucose detectionon Glucose Ql (U) Normal mg/dl Normal [facility] Work Phone: Urine leukocyte esterase det ection by dipstickon 02-19-2022 Leukocyte esterase Test strip Ql (U) 500 /ul Negative [facility] Work Phone: Urine pHon 02-19-2022 pH (U) 6.0 [pH] [facility] Work Phone: Urine sediment bacteria coun t by microscopy (number/high power field)on 02-19-2022 Bacteria LM.HPF (Urine sed) [#/Area] 0 /[HPF] None Seen [facility] Work Phone: Urine specific gravity measu rementon 02-19-2022 Specific gravity (U) [Rel density] 1.015 [facility] Work Phone: Urobilinogen Auto test strip Ql (U)on 02-19-2022 Urobilinogen Ql (U) 8 mg/dl Normal [facility] Work Phone: Basophil percentageon 2021 Basophil percentage 25-50 SEEN /hpf [facility] Work Phone: C. trachomatis DNA MAYELA+probe Ql (Unsp spec) Negative Negative [facility] Work Phone: Bilirubin Test strip Ql (U)o n 01-29-2022 Bilirubin Ql (U) Negative Negative [facility] Work Phone: Culture, urineon 01-29-2022 Bacteria identified Cx Nom (U) Presumptive E. coli [facility] Work Phone: Ketones Test strip Ql (U)on 01-29-2022 Ketones Ql (U) 15 mg/dl Negative [facility] Work Phone: Mucus LM Ql (Urine sed)on Mucus Ql (Urine sed) 0 SEEN /hpf [facility] Work Phone: Neisseria gonorrhoeae detect ion by PCRon 01-29-2022 N. gonorrhoeae DNA MAYELA+probe Ql (Cervical mucus) Negative Negative [facility] Work Phone: Nitrite Test strip Ql (U)on 01-29-2022 Nitrite Ql (U) Negative Negative [facility] Work Phone: Protein Test strip Ql (U)on 01-29-2022 Protein Ql (U) 15 mg/dl Negative [facility] Work Phone: Squamous epithelial cells de tection in urine sediment by light microscopyon 01-29-2022 Epithelial cells.squamous LM Ql (Urine sed) 0-5 SEEN /hpf [facility] Work Phone: Urine blood detectionon 01-02 RBC Ql (U) 25 /ul Negative [facility] Work Phone: RBC Ql (U) 0-5 SEEN /hpf [facility] Work Phone: Urine clarityon 01-29-2022 Clarity (U) Clear Clear [facility] Work Phone: Urine color determinationon 01-29-2022 Color (U) Yellow Yellow [facility] Work Phone: Urine glucose detectionon Glucose Ql (U) Normal mg/dl Normal [facility] Work Phone: Urine leukocyte esterase det ection by dipstickon 01-29-2022 Leukocyte esterase Test strip Ql (U) 500 /ul Negative [facility] Work Phone: Urine pHon 01-29-2022 pH (U) 8.0 [pH] [facility] Work Phone: Urine sediment bacteria coun t by microscopy (number/high power field)on 01-29-2022 Bacteria LM.HPF (Urine sed) [#/Area] 1 /[HPF] None Seen [facility] Work Phone: Urine specific gravity measu rementon 01-29-2022 Specific gravity (U) [Rel density] 1.010 [facility] Work Phone: Urobilinogen Auto test strip Ql (U)on 01-29-2022 Urobilinogen Ql (U) 4 mg/dl Normal [facility] Work Phone: Vital Signs Date Time Vital Sign Value Performing Clinician Faci lity 07-11-2025 15:48-0400 Body height 167.[address] Gino Patterson DO Work Phone: [facility] 07-11-2025 15:48-0400 Body mass index (BMI) [Ratio] 24.2 kg/m2 Dr. Gino Patterson DO Work Phone: [facility] 07-11-2025 15:48-0400 Body temperature 98 [degF] Dr. Gino Patterson DO Work Phone: [facility] 07-11-2025 15:48-0400 Body weight 68.[address] Gino Patterson DO Work Phone: [facility] 07-11-2025 15:48-0400 Diastolic blood pressure 80 mm[Hg] Dr. Gino Patterson DO Work Phone: [facility] 07-11-2025 15:48-0400 Heart rate 58 /min Dr. Gino Patterson DO Work Phone: [facility] 07-11-2025 15:48-0400 Respiratory rate 18 /min Dr. Gino Patterson DO Work Phone: [facility] 07-11-2025 15:48-0400 SaO2% (BldA) [Mass fraction] 97 % Dr. Gino Patterson DO Work Phone: [facility] 07-11-2025 15:48-0400 Systolic blood pressure 128 mm[Hg] Dr. Gino Patterson DO Work Phone: [facility] 09-08-2023 15:50-0500 Body height 167.[address] Gino Patterson Work Phone: [facility] 09-08-2023 15:50-0500 Body mass index (BMI) [Ratio] 25.2 kg/m2 Dr. Gino Patterson Work Phone: [facility] 09-08-2023 15:50-0500 Body temperature 98.4 [degF] Dr. Gino Patterson Work Phone: [facility] 09-08-2023 15:50-0500 Body weight 70.[address] Gino Patterson Work Phone: [facility] 09-08-2023 15:50-0500 Diastolic blood pressure 70 mm[Hg] Dr. Gino Patterson Work Phone: [facility] 09-08-2023 15:50-0500 Heart rate 68 /min Dr. Gino Patterson Work Phone: [facility] 09-08-2023 15:50-0500 Respiratory rate 15 /min Dr. Gino Patterson Work Phone: [facility] 09-08-2023 15:50-0500 SaO2% (BldA) [Mass fraction] 99 % Dr. Gino Patterson Work Phone: [facility] 09-08-2023 15:50-0500 Systolic blood pressure 116 mm[Hg] Dr. Gino Patterson Work Phone: [facility] 02-20-2022 13:00-0400 Body height 167.[address] Gino Patterson Work Phone: [facility] Work Phone: 02-20-2022 13:00-0400 Body mass index (BMI) [Ratio] 25.8 kg/m2 Dr. Gino Patterson Work Phone: [facility] Work Phone: 02-20-2022 13:00-0400 Body temperature 97.6 [degF] Dr. Gino Patterson Work Phone: [facility] Work Phone: 02-20-2022 13:00-0400 Body weight 72.[address] Gino Patterson Work Phone: [facility] Work Phone: 02-20-2022 13:00-0400 Diastolic blood pressure 62 mm[Hg] Dr. Gino Patterson Work Phone: [facility] Work Phone: 02-20-2022 13:00-0400 Heart rate 72 /min Dr. Gino Patterson Work Phone: [facility] Work Phone: 02-20-2022 13:00-0400 Respiratory rate 16 /min Dr. Gino Patterson Work Phone: [facility] Work Phone: 02-20-2022 13:00-0400 SaO2% (BldA) [Mass fraction] 99 % Dr. Gino Patterson Work Phone: [facility] Work Phone: 02-20-2022 13:00-0400 Systolic blood pressure 110 mm[Hg] Dr. Gino Patterson Work Phone: [facility] Work Phone: 01-29-2022 09:43-0400 Diastolic blood pressure 78 mm[Hg] Dr. Gino Patterson Work Phone: [facility] Work Phone: 01-29-2022 09:43-0400 Systolic blood pressure 118 mm[Hg] Dr. Gino Patterson Work Phone: [facility] Work Phone: 01-29-2022 09:30-0400 Body height 167.[address] Gino Patterson Work Phone: [facility] Work Phone: 01-29-2022 09:30-0400 Body mass index (BMI) [Ratio] 26.6 kg/m2 Dr. Gino Patterson Work Phone: [facility] Work Phone: 01-29-2022 09:30-0400 Body temperature 97.5 [degF] Dr. Gino Patterson Work Phone: [facility] Work Phone: 01-29-2022 09:30-0400 Body weight 74.[address] Gino Patterson Work Phone: [facility] Work Phone: 01-29-2022 09:30-0400 Heart rate 74 /min Dr. Gino Patterson Work Phone: [facility] Work Phone: 01-29-2022 09:30-0400 Respiratory rate 14 /min Dr. Gino Patterson Work Phone: [facility] Work Phone: 01-29-2022 09:30-0400 SaO2% (BldA) [Mass fraction] 99 % Dr. Gino Patterson Work Phone: [facility] Work Phone: 12-25-2021 14:51-0500 Body temperature 95.9 [degF] Dr. Gino Patterson Work Phone: [facility] Work Phone: 12-25-2021 14:51-0500 Body weight 73.[address] Gino Patterson Work Phone: [facility] Work Phone: 12-25-2021 14:51-0500 Diastolic blood pressure 90 mm[Hg] Dr. Gino Patterson Work Phone: [facility] Work Phone: 12-25-2021 14:51-0500 Heart rate 60 /min Dr. Gino Patterson Work Phone: [facility] Work Phone: 12-25-2021 14:51-0500 Respiratory rate 16 /min Dr. Gino Patterson Work Phone: [facility] Work Phone: 12-25-2021 14:51-0500 SaO2% (BldA) [Mass fraction] 98 % Dr. Gino Patterson Work Phone: [facility] Work Phone: 12-25-2021 14:51-0500 Systolic blood pressure 144 mm[Hg] Dr. Gino Patterson Work Phone: [facility] Work Phone: Encounters Encounter Date Encounter Type Care Provider Facility Start: 07-11-2025 End: 07-11-[address] Gino Taylor DO -[facility] Work Phone: Start: 07-11-2025 End: 07-11-[address] Gino Patterson DO Work Phone: -[facility] Start: 12-20-2024 Encounter for genera l adult medical examination without abnormal findings Gino Patterson [facility] Start: 11-30-[address] Emerita Patterson DO Work Phone: [facility] Start: 11-30-2024 End: 11-30-2024 ambulatory Gino Patterson Facility:[facility] Start: 11-30-2024 End: 11-30-2024 ambulatory Gino Patterson Facility:[facility] Start: 09-08-2023 End: 09-08-[address] Gino Patterson Work Phone: [facility] Work Phone: Start: 09-08-2023 End: 09-08-[address] Gino Patterson Work Phone: [facility] Work Phone: Start: 10-11-2022 End: 10-12-2022 ambulatory GINO PATTERSON Facility:[facility] Start: 10-11-2022 End: 10-11-2022 Patient encounter procedure GINO PATTERSON DO [facility] Start: 02-21-2022 End: 02-21-[address] Gino Patterson Work Phone: [facility], [facility] Start: 02-20-2022 End: 02-20-[address] Gino Patterson Work Phone: [facility] Start: 02-19-2022 End: 02-19-[address] Gino Patterson Work Phone: [facility], Specimen Start: 01-29-2022 End: 01-29-[address] Gino Patterson Work Phone: [facility], Specimen Start: 12-25-2021 End: 12-25-[address] Gino Patterson Work Phone: [facility] Procedures Date Procedure Procedure Detail Performing Clinician Start: 02-21-2022 Echography of scrotu m and contents Dr. Gino Patterson Work Phone: Start: 02-19-[address] Emerita Patterson Work Phone: Start: 01-29-[address] Emerita Patterson Work Phone: Plan of Treatment Date Care Activity Detail Author Comprehensive metabo lic 1999 panel - Serum or Plasma [facility] Lipid 1996 panel - Serum or Plasma [facility] Payers Date Payer Category Payer Self-pay [id number] 2022 Unknown [id number] 1970 Unknown [id number] [id number] Unknown [id number] Unknown [id number] [id number] Unknown [id number] [id number] Unknown [id number] [id number] [id number] Social History Date Type Detail Facility Start: 01-29-2022 End: 09-08-2023 Tobacco smoking status TXIS Unknown if ever smoked [facility] Start: 1970 Sex Assigned At Male [facility] Start: 08-09-2019 End: 09-08-2023 Tobacco smoking status Never smoked tobacco (finding) [facility] Sex Assigned At Sex [facility] Evaluation + Plan note Note Date & Type Note Facility Evaluation + Plan note No data available for this section [facility] Evaluation note Note Date & Type Note Facility Evaluation note Diagnosis Onset Date Erectile dysfunction acute Seborrheic keratosis acute 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 Hypertension chronic Hypertension [facility] Work Phone: Evaluation note Note Date & Type Note Facility Evaluation note Diagnosis Onset Date Age spots acute Erectile dysfunction acute 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 Hypertension [facility] Work Phone: Evaluation note Note Date & Type Note Facility Evaluation note Diagnosis Onset Date Resolution Left knee pain acute July 11, 2025 3:36pm Chronic low back pain chronic Sep 2024 3:36pm Hypertension chronic July 3:36pm [facility] Work Phone: Hospital Discharge instructions Note Date & Type Note Facility Hospital Discharge instructions No data available for this section [facility] Discharge instructions Note Date & Type Note Facility Hospital Discharge instructions Ambulatory OrdersPT Referral Location: None Selected [facility] Work Phone: Progress note Note Date & Type Note Facility Progress note No data available for this section [facility] Chief Complaint and Reason for Visit Chief Complaint 6 M FU UTI SYMPTOMS Reason for Visit Erectile dysfunction Seborrheic keratosis Atrophy of muscle of right lower leg Hypertension Hypertension Chief Complaint 6 M FU UTI SYMPTOMS genital swelling RT TESTICULAR PAIN Reason for Visit Erectile dysfunction Seborrheic keratosis Atrophy of muscle of right lower leg Hypertension Hypertension Chief Complaint LEFT EAR CHECK / MOL E ON NECK Reason for Visit Age spots Erectile dysfunction Atrophy of muscle of right lower leg Hypertension Chief Complaint Admit Date Low Back Pain July 11, 2025 3:36pm Reason for Visit Admit Date Left knee pain July 11, 2025 3:36pm Chronic low back pain July 11 3:36pm Hypertension July 11, 2025 3:36pm Family History No Family History Records Found Relationship Condition Age at Onset Recorded Date/T alisha mother Hypertension Unknown sister Diabetes mellitus Unknown Summary Purpose Advance Directives No Advanced Directives Records FoundNo Advanced Directives Records Found Additional Source Comments Goals (unrecognized section and content) Goals may be documented in a n alternate sectionGoals may be documented in an alternate sectionGoals may be documented in an alternate section No data available for this sectionGoals may be documented in an alternate sectionGoals may be documented in an alternate section Care Team (unrecognized sect ion and content) Care Team Personnel Name: ISAURA PUCKETT DO Position: P4 Physician - Primary Care Member Role: Primary Care Physician Address: Address: [address] [place] [address] Care Team Related Persons Name: LEANDER RUIZ (unrecognized sect ion and content) No Status Records FoundNo Status Records Found INFORMATION SOURCE (unrecogn ized section and content) DATE CREATED AUTHOR 10/22/2022 [facility] ([place]) DATE CREATED AUTHOR AUTHOR'S ORGANIZ ATION 07/14/2025 [facility] Care Teams (unrecognized sec tion and content) Team Status: Active Member Role Status Dates Dr. Gino Patterosn DO Primary Care Provider Active Team Status: Inactive Member Role Status Dates Dr. Gino Patterson DO Primary Care Pr ovider, Attending Provider, Referring Provider Active Team Status: Active Member Role/Relationship Status Dates Dr. Gino Patterson DO Primary Care Provider Active Team Status: Inactive Member Role/Relationship Status Dates Dr. Gino Patterson DO Primary Care Provider Active Start: July 11, 2025 End: July 11, 2025 Dr. Gino Patterson DO Attending Provider Active Start: July 11, 2025 End: July 11, 2025 Dr. Gino Patterson DO Referring Provider Active Start: July 11, 2025 End: July 11, 2025 FOR RECORDS PERTAINING TO PATIENTS WHO ARE OR HAVE BEEN ENROLLED IN A CHEMICAL DEPENDENCY/SUBSTANCEABUSE PROGRAM, SOME INFORMATION MAY BE OMITTED. This clinical summary was aggregated from multiple sources. Caution should be exercised in using it in the provision of clinical care. This summary normalizes information from multiple sources, and as a consequence, information in this document may materially change the coding, format and clinical context of patient data. In addition, data may be omitted in some cases. CLINICAL DECISIONS SHOULD BE BASED ON THE PRIMARY CLINICAL RECORDS. [facility]. provides no warranty or guarantee of the accuracy or completeness of information in this document.
[2025-07-21 13:23] LABS: AST(SGOT) 25 U/L (<=37); Alanine Aminotransfer ALT/SGPT 16 U/L (<=46); Albumin, Serum 4.2 g/dL (3.5-5.0); Alkaline Phosphatase 65 U/L (40-129); Anion Gap 12 (5-15); BUN 21 mg/dL (4-19); BUN/Creat Ratio 27.3 RATIO (10-20); Calcium,Total 9.4 mg/dL (7.6-11.0); Carbon Dioxide 24.4 mmol/L (21.0-32.0); Chloride 104 mmol/L (98-108); Cholesterol 180 mg/dL (<=200); Globulin 3.6 g/dL (2.2-4.2); Glucose 90 mg/dL (70-99); Low Density Lipoprotein Calc. 87 mg/dL; Potassium 4.2 mmol/L (3.3-5.1); Triglycerides 73 mg/dL; Very Low Density Lipoprotein 15 mg/dL (5-40); cholesterol:hdl ratio screen 2.28
== END | disposition home or self-care (01) ==
LOC: BIMLAB 08:32
PROVIDERS: PCP Family Medicine; Referring Provider Family Medicine; Visit Provider Family Medicine
DX: I10 Essential (primary) hypertension (principal); G89.29 Other chronic pain; M25.562 Pain in left knee
CPT/HCPCS: 36415; 80053; 80061